=== PATIENT | female | born 1995 | race Caucasian/White ===

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

== ENCOUNTER 2017-05-26 18:00 | Emergency (ER) | payer BC ==
--- NOTE | 2017-05-26 18:43 | EDM.PDOC ---
<Kandice Stevens - Last Filed: 05/26/17 18:52> ED HPI GENERAL MEDICAL PROBLEM - General Chief Complaint: Respiratory Problem Stated Complaint: SINUS PROBLEMS/FEVER Time Seen by Provider: 05/26/17 18:25 Source of Information: Reports: Patient, Family History Limitations: Reports: No Limitations - History of Present Illness INITIAL COMMENTS - FREE TEXT/NARRATIVE: Patient is a 22 YO female who presents with sore throat and fever. 4 days ago, she started feeling ill with nasal congestion and cough. Cough is nonproductive but patient states she feels there is phlegm stuck in her throat. She states her throat is a little sore with some left ear pain. She reports fever of 103 that started last night. She has been taking Tylenol and Motrin for the fever. She took 400 mg Motrin around 1430 today. She has not had much of an appetite but has been trying to drink a lot of water. She denies nausea, vomiting, diarrhea. She denies known sick contracts. She did get her flu shot this year at the end of October. Oral/Mouth Pain Score (Numeric/FACES): 7 - Related Data Allergies Allergy/AdvReac Type Severity Reaction Status Date / Time amoxicillin Allergy Hives Verified 05/26/17 18:04 Penicillins Allergy Hives Verified 05/26/17 18:04 Home Meds: Home Meds Doxycycline [Vibramycin] 100 mg PO BID #20 cap 05/26/17 [Rx] Past Medical History - Past Health History Medical/Surgical History: Denies Medical/Surgical History HEENT History: Reports: Otitis Media Social & Family History - Tobacco Use Smoking Status *Q: Never Smoker Second Hand Smoke Exposure: No - Recreational Drug Use Recreational Drug Use: No - Living Situation & Occupation Living situation: Reports: Single Occupation: Student ED ROS GENERAL - Review of Systems Review Of Systems: See Below Constitutional: Reports: Fever, Chills, Fatigue HEENT: Reports: Ear Pain, Throat Pain Respiratory: Reports: Cough Cardiovascular: Reports: No Symptoms GI/Abdominal: Reports: No Symptoms Skin: Reports: No Symptoms Neurological: Reports: No Symptoms Psychiatric: Reports: No Symptoms ED EXAM, GENERAL - Physical Exam Exam: See Below Exam Limited By: No Limitations General Appearance: Alert, WD/WN, No Apparent Distress Eye Exam: Bilateral Eye: EOMI, PERRL Ears: Normal External Exam, Normal Canal, Normal TMs Throat/Mouth: Normal Lips, Normal Gums, Normal Oropharynx, Normal Voice, Other ( tonsils appear to be mildly enlarged bilaterally. No exudate or errythema. ) Head: Atraumatic, Normocephalic Neck: Normal Inspection, Lymphadenopathy (L) (anterior cervical) Respiratory/Chest: No Respiratory Distress, Lungs Clear, Normal Breath Sounds Cardiovascular: Regular Rate, Rhythm, No Murmur GI/Abdominal: Normal Bowel Sounds, Soft, Non-Tender Neurological: Alert, Oriented, CN II-XII Intact, Normal Cognition, No Motor/ Sensory Deficits Psychiatric: Normal Affect, Normal Mood Skin Exam: Warm, Dry, Intact, Normal Color, No Rash Course - Vital Signs Last Recorded V/S: Last Vital Signs Temp 36.8 C 05/26/17 18:05 Pulse 113 H 05/26/17 18:05 Resp BP 130/67 05/26/17 18:05 Pulse Ox 99 05/26/17 18:05 Orthostatic Blood Pressure [ 115/76 Standing] Orthostatic Blood Pressure [ 111/61 Sitting] Orthostatic Blood Pressure [ 113/71 Supine] - Orders/Labs/Meds Orders: Active Orders 24 hr Category Date Time Status Orthostatic Vital Signs [RC] ASDIRECTED Care 05/26/17 18:36 Active INFLUENZA A+B AG SCREEN [RM] Stat Lab 05/26/17 18:50 Ordered Departure - Departure Disposition: Home, Self-Care 01 Clinical Impression: Sinusitis - Discharge Information Prescriptions: Doxycycline [Vibramycin] 100 mg PO BID #20 cap Instructions: Sinusitis, Adult, [id number] Referrals: Ramya Woodson, BIOMETRICS INSTRUCTOR [Primary Care Provider] - Forms: ED Department Discharge, ED Return to Work/School Form Additional Instructions: Doxycycline 1 Twice a day for 10 days. Take this medication with food. Avoid the sun or if you are in the sun make sure wear sunscreen. [id number] Tylenol or Motrin seen for fevers and body ache relief. Follow up with your primary care provider as planned for recheck of your symptoms. Please return to the ER if your symptoms change or worsen.f. <Keri Suarez - Last Filed: 05/26/17 20:00> ED HPI GENERAL MEDICAL PROBLEM - History of Present Illness INITIAL COMMENTS - FREE TEXT/NARRATIVE: Patient was initially seen by LILIA Chavez. I seen the patient and agree with the history of present illness as documented by Kandice. Addition to me patient reports teeth pain to the bilateral lower jaw which she treats to her wisdom teeth erupting. denies any recent travel. ED ROS GENERAL - Review of Systems HEENT: Reports: Ear Pain (left), Sinus Problem Neurological: Reports: Headache ED EXAM, GENERAL - Physical Exam General Appearance: Mild Distress, Obese Nose: Normal Inspection Head: Sinus Tenderness (Bilateral maxillary) Course - Re-Assessments/Exams Free Text/Narrative Re-Assessment/Exam: 05/26/17 19:29 Patient was initially seen by LILIA Chavez. agree with the history of present illness, review of systems and physical exam as documented by Kandice. I've seen the patient and reviewed her and examined her myself. Plan will be discharged on some doxycycline for a sinus infection. Discharge instructions as documented. Departure - Departure Time of Disposition: 19:39 Condition: Fair
[2017-05-26 19:58] VITALS: BP 106/74
== END 2017-05-26 19:53 | disposition home or self-care (01) ==
LOC: JD.ED 18:00
DX: J32.9 Chronic sinusitis, unspecified (principal); Z88.1 Allergy status to other antibiotic agents; Z88.0 Allergy status to penicillin
CPT/HCPCS: 87804; 99283

== ENCOUNTER 2017-05-27 21:36 | Emergency (ER) | payer BC ==
[2017-05-27 21:48] VITALS: BP 149/86
[2017-05-27] MEDS ORDERED: Dextrose 5%-0.9% NaCl 1,000 ML IV SCH (22:00)
--- NOTE | 2017-05-27 22:00 | EDM.PDOC ---
ED HPI GENERAL MEDICAL PROBLEM - General Chief Complaint: Respiratory Problem Stated Complaint: FEVER/CONGESTION Time Seen by Provider: 05/27/17 21:54 Source of Information: Reports: Patient, Family (mother) History Limitations: Reports: No Limitations - History of Present Illness INITIAL COMMENTS - FREE TEXT/NARRATIVE: 22-year-old female returns to the ED with delirium. Temperature at home was not checked but she was certainly delirious according to mom. She was confused and disoriented mom even had to help her get dressed. He was very warm to palpation. Even now she's 102.6 after receiving Motrin 600 mg mouth 2 hours ago. She has a nonproductive cough for the last 2 days with very high fever loss of appetite body aches and headaches all compatible with influenza. She was seen through the ED last night and influenza screen was negative but it was within the first 24 hours of illness which is often a false negative. She hasn' t eaten all day she's been mostly in bed. She is nauseated at times and does have emesis with coughing so hard. She did have her flu shot last fall. She was started on doxycycline 100 mg twice a day yesterday for suspect upper respiratory tract infection with sinusitis. Slightly that she did not take her meds today out of confusion. Mother still found him on the bedside when she got home from work. Onset: Gradual (Fever started greater than 24 hours ago.) Onset Date: 05/25/17 Duration: Day(s):, Getting Worse, Other (Very confused and disoriented at home tonight improved cognitive function since taking Motrin suggesting delirium was due to high fever.) Location: Reports: Other (Harsh nonproductive cough.) Quality: Reports: Ache Severity: Moderate (Analyzed severe myalgia) Improves with: Reports: Medication (Treatment is help reduce temperature and improved cognitive function.) Context: Denies: Activity, Exercise, Lifting, Sick Contact, Trauma Associated Symptoms: Reports: Cough, Fever/Chills (High fever with severe chills.), Headaches, Loss of Appetite, Malaise (Complete loss of appetite), Nausea/Vomiting, Weakness (Intermittent nausea with vomiting of bilious material. Her generalized weakness). Denies: No Other Symptoms, Confusion, Chest Pain (Nonproductive for the most part), cough w sputum, Diaphoresis, Rash , Seizure, Shortness of Breath, Syncope Treatments SUPERVISOR DISPLAY FABRICATION: Reports: NSAIDS Throat Pain Score (Numeric/FACES): 7 - Related Data Allergies Allergy/AdvReac Type Severity Reaction Status Date / Time amoxicillin Allergy Hives Verified 05/27/17 21:47 Penicillins Allergy Hives Verified 05/27/17 21:47 Home Meds: Home Meds Doxycycline [Vibramycin] 100 mg PO BID #20 cap 05/26/17 [Rx] Chlorpheniramine/HYDROcodone [Tussionex Pennkinetic] 5 ml PO Q12H PRN #60 ml [Rx] Oseltamivir [Tamiflu] 75 mg PO BID #9 cap 05/27/17 [Rx] Past Medical History - Past Health History Medical/Surgical History: Denies Medical/Surgical History HEENT History: Reports: Otitis Media Social & Family History - Tobacco Use Smoking Status *Q: Never Smoker Second Hand Smoke Exposure: No - Caffeine Use Caffeine Use: Reports: None - Recreational Drug Use Recreational Drug Use: No - Living Situation & Occupation Living situation: Reports: Single Occupation: Student ED ROS GENERAL - Review of Systems Review Of Systems: See Below Constitutional: Reports: Fever, Chills, Malaise, Weakness, Fatigue, Decreased Appetite, Weight Loss HEENT: Reports: Ear Pain, Throat Pain (Your pain is constant.) Respiratory: Reports: Cough. Denies: Wheezing, Pleuritic Chest Pain, Sputum, Hemoptysis (Productive cough) Cardiovascular: Reports: Chest Pain, Lightheadedness. Denies: Blood Pressure Problem, Claudication, Dyspnea on Exertion, Edema (When standing.), Orthopnea ( Only from coughing), Palpitations, PND, Syncope Endocrine: Reports: Fatigue GI/Abdominal: Reports: Anorexia : Reports: No Symptoms Musculoskeletal: Reports: Muscle Pain Skin: Reports: No Symptoms (Generalized myalgia) Neurological: Reports: Confusion (Associate with very high fever but not checked at home. Improved cognitive function now and temperature is currently 102.6.), Dizziness, Headache Psychiatric: Reports: Confusion, Other Hematologic/Lymphatic: Reports: No Symptoms (Acute delirium.) Immunologic: Reports: No Symptoms ED EXAM, GENERAL - Physical Exam Exam: See Below Exam Limited By: No Limitations General Appearance: Alert, WD/WN, No Apparent Distress, Other (Is very warm to palpation.) Eye Exam: Bilateral Eye: Normal Inspection Ears: Normal TMs Throat/Mouth: Normal Inspection, Normal Lips, Normal Oropharynx, Other Head: Atraumatic (Tonsils are normal), Normocephalic Neck: Normal Inspection, Supple, Non-Tender, Full Range of Motion, Lymphadenopathy (L) (Minimally enlarged), Lymphadenopathy (R) (Minimal ) Respiratory/Chest: No Respiratory Distress, Lungs Clear, Normal Breath Sounds, No Accessory Muscle Use, Chest Non-Tender, Respiratory Distress. No: Rhonchi, Wheezing, Accessory Muscle Use Cardiovascular: Normal Peripheral Pulses (Resting tachycardia of 116-1 20/m), No Edema, No Gallop, No Murmur, No Rub, Tachycardia Peripheral Pulses: 3+: Posterior Tibial (L), Posterior Tibial (R), Dorsalis Pedis (L), Dorsalis Pedis (R) GI/Abdominal: Normal Bowel Sounds, Soft, Non-Tender, No Organomegaly Back Exam: Normal Inspection, Full Range of Motion, CVA Tenderness (L) (Mild seems to be muscular.), CVA Tenderness (R) Extremities: Normal Inspection, Normal Range of Motion, Non-Tender, No Pedal Edema Neurological: Alert, Oriented, CN II-XII Intact, Normal Cognition Psychiatric: Flat Affect Skin Exam: Warm, Dry, Intact, Normal Color, No Rash Course - Vital Signs Last Recorded V/S: Last Vital Signs Temp 37.1 C 05/27/17 21:44 Pulse 116 H 05/27/17 21:44 Resp 18 05/27/17 21:44 BP 149/86 H 05/27/17 21:44 Pulse Ox 98 05/27/17 21:44 - Orders/Labs/Meds Orders: Active Orders 24 hr Category Date Time Status Chest 1V Frontal [CR] Stat Exams 05/27/17 22:01 Taken INFLUENZA A+B AG SCREEN [RM] Stat Lab 05/27/17 22:24 Ordered Labs: Laboratory Tests 05/27/17 05/27/17 Range/Units 22:12 22:12 WBC 9.18 (3.98-10.04) K/mm3 RBC 4.88 (3.98-5.22) M/mm3 Hgb 12.2 (11.2-15.7) gm/L Hct 39.2 (34.1-44.9) % MCV 80.3 (79.4-94.8) fl MCH 25.0 L (25.6-32.2) pg MCHC 31.1 L (32.2-35.5) g/dl RDW Std Deviation 46.3 (36.4-46.3) fL Plt Count 323 (182-369) K/mm3 MPV 8.9 L (9.4-12.3) fl Neutrophils % (Manual) 68 H (40-60) % Band Neutrophils % 0 (0-10) % Lymphocytes % (Manual) 18 L (20-40) % Atypical Lymphs % 2 % Monocytes % (Manual) 10 (2-10) % Eosinophils % (Manual) 2 (0.7-5.8) % Basophils % (Manual) 0 L (0.1-1.2) Platelet Estimate Adequate Plt Morphology Comment Normal Hypochromasia 1+ slight Poikilocytosis 1+ slight Anisocytosis 1+ slight Microcytosis 1+ slight Macrocytosis 1+ slight Tear Drop Cells 1+ slight RBC Morph Comment Abnormal Sodium 141 (136-145) mEq/L Potassium 3.5 (3.5-5.1) mEq/L Chloride 106 (98-107) mEq/L Carbon Dioxide 25 (21-32) mEq/L Anion Gap 13.5 (5-15) BUN 11 (7-18) mg/dL Creatinine 0.7 (0.55-1.02) mg/dL Est Cr Clr Drug Dosing 120.01 mL/min Estimated GFR (MDRD) > 60 (>60) mL/min BUN/Creatinine Ratio 15.7 (14-18) Glucose 136 H (74-106) mg/dL Calcium 8.8 (8.5-10.1) mg/dL Total Bilirubin 0.3 (0.2-1.0) mg/dL AST 20 (15-37) U/L ALT 21 (14-59) U/L Alkaline Phosphatase 67 (46-116) U/L C-Reactive Protein 2.5 H* (<1.0) mg/dL Total Protein 7.1 (6.4-8.2) g/dl Albumin 3.7 (3.4-5.0) g/dl Globulin 3.4 gm/dL Albumin/Globulin Ratio 1.1 (1-2) Meds: Medications Discontinued Medications Generic Name Dose Route Start Last Admin Trade Name Freq PRN Reason Stop Dose Admin Dextrose/Sodium Chloride 1,000 mls @ 999 mls/hr 05/27/17 22:00 05/27/17 22:20 Dextrose 5%-Normal Saline IV 999 mls/hr ASDIRECTED IRENA Administration Ketorolac Tromethamine 30 mg 05/27/17 22:15 05/27/17 22:23 Toradol IVPUSH 30 mg ONETIME IRENA Administration Ondansetron HCl 4 mg 05/27/17 22:02 05/27/17 22:20 Zofran IVPUSH 05/27/17 22:03 4 mg ONETIME ONE Administration Oseltamivir Phosphate 75 mg 05/27/17 23:07 05/27/17 23:30 Tamiflu PO 05/27/17 23:08 75 mg ONETIME ONE Administration - Radiology Interpretation Free Text/Narrative:: 22-year-old female returns to the ED with acute delirium precipitated by very high fever at home. She's been very ill for the last 24-36 hours with high fever chills. Complete loss of appetite associated nonproductive cough headache and generalized myalgia. These are all symptoms of influenza. She was seen to the ED last night and influenza screen was negative. I suspect this was a false negative. Examination shows no signs of a bacterial infection. Plan 1 view chest x-ray will be done to rule out an occult pneumonia since her temperature was so high. Routine labs will be collected without blood cultures at this time. Lungs are clear to auscultation. Influenza screen to be repeated. IV will be D5 normal saline at open as she has not ate or drank all day and is volume depleted. Will give Toradol 30 mg IV to help with body ache and headache Zofran 4 mg IV for nausea relief. - Re-Assessments/Exams Free Text/Narrative Re-Assessment/Exam: 05/27/17 22:51 portable chest x-ray is within normal limits showing no signs of pneumonia.Labs reveal a normal white count at 9.18. The differential is pending. Hemoglobin is 12.2 with hematocrit of 39.2. Platelets 323,000. Sodium is 141 with potassium of 3.5. Port is 106 with a bicarbonate of 25. Anion gap is 13.5 with a BUN of 11. Creatinine 0.7. Glucose is 136. Calcium is 8.8. Liver function is normal. CRP is elevated at 2.5. Influenza screen is pending. 05/27/17 23:02 influenza screen came back negative once again. Differential on the white count was 68% neutrophils no bands. Therefore she still exhibiting signs symptoms of a viral infection and I'm going to go ahead and treat her clinically with Tamiflu as clinically she has influenza. She will also be given Tussionex cough syrup 5 mils every 12 hours as necessary to help control severe paroxysmal cough. She'll still need to take Motrin 600 mg every 6 hours to break fever at least until the Tamiflu becomes effectual. Departure - Departure Time of Disposition: 23:08 Disposition: Home, Self-Care 01 Condition: Fair Clinical Impression: Viral upper respiratory tract infection with cough - Discharge Information Prescriptions: Chlorpheniramine/HYDROcodone [Tussionex Pennkinetic] 5 ml PO Q12H PRN #60 ml PRN Reason: Cough relief Oseltamivir [Tamiflu] 75 mg PO BID #9 cap Instructions: Upper Respiratory Infection, Adult, [id number] Referrals: Ramya Woodson, STONEMASON HELPER [Primary Care Provider] - Forms: ED Department Discharge Additional Instructions: Evaluation the emergency room tonight in regards to acute delirium that occurred at home likely due to very high fever as your fever came down your cognitive function returned to normal. Medically you have influenza in spite of testing 2 last night and tonight which came back negative. You have all the signs and symptoms of influenza with high fever headache bodyache loss of appetite and paroxysmal nonproductive cough. Chest x-ray is negative for pneumonia and labs revealed more of a viral pattern illness with no signs of bacterial illness. I'm therefore going to suggest continue Motrin use 600 mg every 6 hours to bring fever under control. Tylenol 1 g 3 hours after the Motrin dose if needed for temperature greater than 100.5. Initial dose of Tamiflu which is antiviral medicine for influenza was started in the ED tonight. He will need one tablet twice daily for the next 5 days to clear up influenza infection. This should reduce body aches headaches and help return appetite usually within 36-48 hours. Cough will remain for up to 2 weeks. Cough syrup is to be Tussionex 5 mils every 12 hours as needed for cough relief. Particular use this about an hour before bedtime to help get through the night without coughing. Try drink as much fluids as possible such as Gatorade or Powerade and diet as able. - My Orders Last 24 Hours: My Active Orders 05/27/17 22:01 Chest 1V Frontal [CR] Stat 05/27/17 22:24 INFLUENZA A+B AG SCREEN [RM] Stat - Assessment/Plan Last 24 Hours: My Active Orders 05/27/17 22:01 Chest 1V Frontal [CR] Stat 05/27/17 22:24 INFLUENZA A+B AG SCREEN [RM] Stat
[2017-05-27] MEDS ORDERED: Ondansetron 4 MG/2 ML SDV IVPUSH ONE (22:02)
[2017-05-27] MEDS ORDERED: Ketorolac 30 MG/ML SDV IVPUSH SCH (22:15)
[2017-05-27] MEDS ORDERED: Oseltamivir 75 MG Cap PO ONE (23:07)
--- NOTE | 2017-05-28 06:58 | CR ---
Chest: Portable view of the chest was obtained. Comparison: Prior chest x-ray of 02/10/13. Heart size is prominent but accentuated from portable technique. Lungs are clear with no acute parenchymal change. Bony structures are grossly intact. Impression: 1. Nothing acute is seen on portable chest x-ray. Diagnostic code #1
== END 2017-05-27 23:35 | disposition home or self-care (01) ==
LOC: JD.ED 21:36
DX: J06.9 Acute upper respiratory infection, unspecified (principal); Z88.0 Allergy status to penicillin; Z88.1 Allergy status to other antibiotic agents
CPT/HCPCS: 36415; 71045; 80053; 85025; 86140; 87804; 96361; 96374; 96375; 99284; A9270; J1885; J2405; J7042

== ENCOUNTER 2018-07-09 01:09 | Emergency (ER) | payer BC ==
[2018-07-09 01:20] VITALS: BP 132/92
--- NOTE | 2018-07-09 01:48 | EDM.PDOC ---
ED HPI GENERAL MEDICAL PROBLEM - General Chief Complaint: Upper Extremity Injury/Pain Stated Complaint: SHOULDER PAIN LEFT Time Seen by Provider: 07/09/18 01:20 Source of Information: Reports: Patient, Family (Mother), RN Notes Reviewed History Limitations: Reports: No Limitations - History of Present Illness INITIAL COMMENTS - FREE TEXT/NARRATIVE: The patient states that she has had left shoulder pain on and off for the past 6 months. She recalls no injury. She states that the pain is present even if she is not moving the shoulder, and that the pain involves the entire shoulder - anterior, lateral, posterior, and superior. She states that her pain has been worse for the past week. She states that she has seen a chiropractor for her shoulder a few times, and that her shoulder was manipulated/adjusted, which did not provide any long-term relief. She was seen at the walk-in clinic yesterday, , 07/08/2018. She states that x-rays were done, that she was told were negative. She states that she was not prescribed any pain medication. The patient's PCP is LISA Barnes. The patient has an appointment to see Ms. Beltre on , 07/22/2018. Left Shoulder Pain Score (Numeric/FACES): 9 - Related Data Allergies Allergy/AdvReac Type Severity Reaction Status Date / Time amoxicillin Allergy Hives Verified 05/27/17 21:47 Penicillins Allergy Hives Verified 05/27/17 21:47 Home Meds: Home Meds Doxycycline [Vibramycin] 100 mg PO BID #20 cap 05/26/17 [Rx] Chlorpheniramine/HYDROcodone [Tussionex Pennkinetic] 5 ml PO Q12H PRN #60 ml [Rx] Oseltamivir [Tamiflu] 75 mg PO BID #9 cap 05/27/17 [Rx] Past Medical History Endocrine/Metabolic History: Reports: Obesity/BMI 30+ Social & Family History - Tobacco Use Smoking Status *Q: Never Smoker - Caffeine Use Caffeine Use: Reports: None - Alcohol Use Alcohol Use History: Yes Alcohol Use Frequency: Socially - Recreational Drug Use Recreational Drug Use: No - Living Situation & Occupation Living situation: Reports: Single, with Family 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 ED EXAM, GENERAL - Physical Exam Exam: See Below Exam Limited By: No Limitations General Appearance: Alert, WD/WN, No Apparent Distress Extremities: Other (No visible abnormality to the left shoulder, such as swelling, erythema, ecchymosis, or abrasion. The patient reports tenderness to the anterior, lateral, posterior, and superior shoulder upon palpation. The patient reports pain to the shoulder to all attempts at movement against resistance, including flexion, extension, abduction, and external rotation, however, excluding adduction and internal rotation. The patient has normal AROM. Neurovascular status of the left upper extremity is intact.) Course - Vital Signs Last Recorded V/S: Last Vital Signs Temp 36.4 C 07/09/18 01:18 Pulse 80 07/09/18 01:18 Resp 18 07/09/18 01:18 BP 132/92 H 07/09/18 01:18 Pulse Ox 98 07/09/18 01:18 - Re-Assessments/Exams Free Text/Narrative Re-Assessment/Exam: 07/09/18 01:45 I can only speculate as to the cause of the patient's chronic left shoulder pain , and there are no tests that I can order tonight that will lend insight as to the etiology. Instead, I will refer her to Ortho for further evaluation. Departure - Departure Time of Disposition: 01:46 Disposition: Home, Self-Care 01 Condition: Good Clinical Impression: Chronic left shoulder pain - Discharge Information *PRESCRIPTION DRUG MONITORING PROGRAM REVIEWED*: Not Applicable *COPY OF PRESCRIPTION DRUG MONITORING REPORT IN PATIENT ANIYA: Not Applicable Instructions: Shoulder Pain Referrals: Chris Castillo MD [Physician] - Katherin Beltre PA-C [Ordering Only Provider] - Forms: ED Department Discharge Additional Instructions: You were seen in the emergency room for 6 months of left shoulder pain, on and off, without injury. No acute abnormality was found on examination. The cause of your pain is unclear. We recommend that you follow-up with the Orthopedic Surgeon Dr. Chris Castillo at the next available appointment, for further evaluation and possible treatment. If any other problems, please do not hesitate to return to the ER.
== END 2018-07-09 01:59 | disposition home or self-care (01) ==
LOC: JD.ED 01:09
DX: M25.512 Pain in left shoulder (principal); G89.29 Other chronic pain; Z88.0 Allergy status to penicillin; Z88.1 Allergy status to other antibiotic agents
CPT/HCPCS: 99281; 99283

== ENCOUNTER 2018-11-16 23:57 | Emergency (ER) | payer BC ==
--- NOTE | 2018-11-17 00:02 | EDM.PDOC ---
ED HPI GENERAL MEDICAL PROBLEM - General Chief Complaint: ENT Problem Stated Complaint: ear pain Time Seen by Provider: 11/17/18 00:02 - History of Present Illness INITIAL COMMENTS - FREE TEXT/NARRATIVE: 23-year-old female presents emergency room with several day history of fevers and congestion and ear pain. She's had temps as high as 102 at home. She has significant discomfort in her right ear and a lot of right facial pressure. This is been going on for the last several days. She has quite a bit of postnasal drip and is coughing quite a bit. Bilateral Ear Pain Score (Numeric/FACES): 9 - Related Data Allergies Allergy/AdvReac Type Severity Reaction Status Date / Time amoxicillin Allergy Hives Verified 11/17/18 00:04 Penicillins Allergy Hives Verified 11/17/18 00:04 Home Meds: Home Meds Clindamycin HCl 300 mg PO Q8H #29 capsule 11/17/18 [Rx] metFORMIN [Glucophage XR] 500 mg PO DAILY 11/17/18 [History] Past Medical History - Past Health History Medical/Surgical History: Denies Medical/Surgical History HEENT History: Reports: Otitis Media Endocrine/Metabolic History: Reports: Obesity/BMI 30+ Social & Family History - Caffeine Use Caffeine Use: Reports: None - Living Situation & Occupation Living situation: Reports: Single, with Family 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) ED ROS ENT - Review of Systems Review Of Systems: See Below Constitutional: Reports: Fever, Chills HEENT: Reports: No Symptoms Respiratory: Reports: Cough, Sputum (Seems to be from postnasal drip) Cardiovascular: Reports: No Symptoms GI/Abdominal: Reports: No Symptoms ED EXAM, ENT - Physical Exam Exam: See Below Exam Limited By: No Limitations General Appearance: Alert, No Apparent Distress Eye Exam: Bilateral Eye: Normal Inspection Ears: Other (Left tympanic membrane fairly normal right tympanic membrane is retracted and has exudate behind the tympanic membrane ears and canals otherwise normal) Nose: Other (Minimal nasal congestion she has marked right maxillary sinus tenderness with percussion and she has pain duplicated by looking down in the right maxillary sinus) Mouth/Throat: Normal Inspection, Normal Gums, Normal Lips, Normal Oropharynx, Normal Teeth, Other (Sinus drainage in the posterior pharynx) Head: Atraumatic, Normocephalic Neck: Normal Inspection, Supple, Non-Tender, Full Range of Motion, Lymphadenopathy (L) (Mild), Lymphadenopathy (R) (Mild) Respiratory/Chest: No Respiratory Distress, Lungs Clear, Normal Breath Sounds Cardiovascular: Regular Rate, Rhythm, No Edema Course - Vital Signs Last Recorded V/S: Last Vital Signs Temp 36.4 C 11/17/18 00:01 Pulse 93 11/17/18 00:01 Resp 18 11/17/18 00:01 BP 131/77 11/17/18 00:01 Pulse Ox 99 11/17/18 00:01 - Orders/Labs/Meds Orders: Active Orders 24 hr Category Date Time Status Influenza Vaccine Charge [RC] .DISCHARGE Care 11/17/18 00:09 Active FLU Vacc [id number](6MOS+)/PF [Fluzone Quad Med 11/17/18 00:15 Once Syringe] 60 mcg IM .ONCE ONE Pharmacy to Dose - InFluenza V [Pharmacy to Dose - Med 11/17/18 00:09 Once InFluenza Vaccine] 1 each IM ONETIME ONE Medication Orders Influenza Virus Vaccine (Pharmacy To Dose - Influenza Vaccine) 1 each IM ONETIME ONE Stop: 11/17/18 00:10 Influenza Virus Vaccine (Fluzone Quad Syringe) 60 mcg IM .ONCE ONE Stop: 11/17/18 00:16 Meds: Medications Generic Name Dose Route Start Last Admin Trade Name Freq PRN Reason Stop Dose Admin Influenza Virus Vaccine 1 each 11/17/18 00:09 Pharmacy To Dose - Influenza Vaccine IM 11/17/18 00:10 ONETIME ONE Influenza Virus Vaccine 60 mcg 11/17/18 00:15 Fluzone Quad Syringe IM 11/17/18 00:16 .ONCE ONE Departure - Departure Time of Disposition: 00:16 Disposition: Home, Self-Care 01 Clinical Impression: Right acute suppurative otitis media, Right maxillary sinusitis - Discharge Information Prescriptions: Clindamycin HCl 300 mg PO Q8H #29 capsule Referrals: Katherin Beltre PA-C [Primary Care Provider] - Forms: ED Department Discharge Additional Instructions: Return to emergency room if any questions problems worsening symptoms. Take the antibiotics as directed. Your first dose was given here in the emergency room. Consider sinus irrigation with the Eric [employer] sinus coating technician ibuprofen as needed for discomfort Follow-up in the clinic early next week if needed - My Orders Last 24 Hours: My Active Orders 11/17/18 00:09 Influenza Vaccine Charge [RC] .DISCHARGE Pharmacy to Dose - InFluenza V [Pharmacy to Dose - InFluenza Vaccine] 1 each IM ONETIME ONE 11/17/18 00:15 FLU Vacc [id number](6MOS+)/PF [Fluzone Quad Syringe] 60 mcg IM .ONCE ONE - Assessment/Plan Last 24 Hours: My Active Orders 11/17/18 00:09 Influenza Vaccine Charge [RC] .DISCHARGE Pharmacy to Dose - InFluenza V [Pharmacy to Dose - InFluenza Vaccine] 1 each IM ONETIME ONE 11/17/18 00:15 FLU Vacc [id number](6MOS+)/PF [Fluzone Quad Syringe] 60 mcg IM .ONCE ONE
[2018-11-17 00:04] VITALS: BP 131/77; PULSE 93
[2018-11-17] MEDS ORDERED: FLU Vacc QS2019-20(6MOS+)/PF 60 MCG/0.5 ML SYRINGE IM ONE (00:15)
[2018-11-17] MEDS ORDERED: Clindamycin HCl 150 MG Cap PO ONE (00:19)
== END 2018-11-17 00:35 | disposition home or self-care (01) ==
LOC: JD.ED 23:57
DX: H66.001 Acute suppurative otitis media without spontaneous rupture of ear drum, right ear (principal); J32.0 Chronic maxillary sinusitis; E66.9 Obesity, unspecified; Z68.36 Body mass index [BMI] 36.0-36.9, adult; Z88.0 Allergy status to penicillin
CPT/HCPCS: 90471; 90686; 99282; A9270; 99283; G0008

== ENCOUNTER 2019-12-16 23:33 | Emergency (ER) | payer BC, OTHER ==
[2019-12-16 23:45] VITALS: BP 143/88; PULSE 120
[2019-12-16] MEDS ORDERED: FLU VACC QS2020-21(6MOS UP)/PF 60 MCG/0.5 ML SYRINGE IM ONE (23:45)
--- NOTE | 2019-12-17 00:15 | EDM.PDOC ---
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 Lunsford is a very pleasant 24-year-old woman, , who now presents to the ED with a complaint of abnormal uterine bleeding. She states that her usual menstrual period started on 11/12/2019, but after it finished, she has had painless spotting ever since. The vaginal bleeding then became more severe this past 12/13/2019. At about that time, she saw her PCP. The patient states that no tests were done, but that she was prescribed control pills, which she is supposed to start this coming 12/18/2019. She presented to the ED, however, because she became lightheaded when upright today. She states that she feels dehydrated, therefore she has been drinking Pedialyte. No prior similar experience. Here in the ED, the patient's initial BP is found to be mildly elevated 143/88, with a tachycardia of 120 bpm. She is afebrile, saturating 99% on room air. Prior to 1 month ago, the patient denies having a recent fever, chills, sore throat, ear pain, nasal or sinus congestion, cough, dyspnea, chest pain, palpitations, nausea, vomiting, constipation, diarrhea, abdominal pain, urinary symptoms, recent weight gain or weight loss, recent bloody bowel movements or black bowel movements, recent joint aches, headaches, or rashes. The patient's PCP is Makenzie Arizmendi NP. She has not received an influenza vaccine this season, but agreed to receive one here today. - Related Data Allergies Allergy/AdvReac Type Severity Reaction Status Date / Time amoxicillin Allergy Hives Verified 12/16/19 23:45 Penicillins Allergy Hives Verified 12/16/19 23:45 Home Meds: Home Meds . [No Known Home Meds] 12/16/19 [History] Past Medical History Endocrine/Metabolic History: Reports: Obesity/BMI 30+, Other (See Below) (Pred iabetes) Social & Family History - Family History Family Medical History: Noncontributory - Tobacco Use Tobacco Use Status *Q: Never Tobacco User Second Hand Smoke Exposure: No - Caffeine Use Caffeine Use: Reports: Coffee - Alcohol Use Alcohol Use History: Yes Alcohol Use Frequency: Socially - Recreational Drug Use Recreational Drug Use: No - Living Situation & Occupation Living situation: Reports: Single, with Family (Parents) Occupation: Employed ([employer]) ED ROS GENERAL - Review of Systems Review Of Systems: Comprehensive ROS is negative, except as noted in HPI. ED EXAM, RENAL/ - Physical Exam Exam: See Below Exam Limited By: No Limitations General Appearance: Alert, WD/WN, No Apparent Distress Eye Exam: Bilateral Eye: EOMI, Normal Inspection Ears: Normal External Exam, Hearing Grossly Normal Nose: Normal Inspection Throat/Mouth: Normal Inspection, Normal Lips, Normal Voice, No Airway Compromise Head: Atraumatic, Normocephalic Neck: Normal Inspection, Full Range of Motion Respiratory/Chest: No Respiratory Distress, Lungs Clear, Normal Breath Sounds, No Accessory Muscle Use Cardiovascular: Normal Peripheral Pulses, Regular Rate, Rhythm, No Edema, No Gallop, No JVD, No Murmur, No Rub GI/Abdominal: Normal Bowel Sounds, Soft, Non-Tender, No Organomegaly, No Distention, No Abnormal Bruit, No Mass (Female) Exam: Normal External Exam, Other (Modest amount of brownish blood within the vagina. No active bleeding seen from a nulliparous cervix. No vaginal lesions seen.) Back Exam: Normal Inspection, Full Range of Motion. No: CVA Tenderness (L), CVA Tenderness (R) Extremities: Normal Inspection, Normal Range of Motion, No Pedal Edema, Normal Capillary Refill Neurological: Alert, Oriented, Normal Cognition, No Motor/Sensory Deficits Psychiatric: Normal Affect Skin Exam: Warm, Dry, Intact, Normal Color, No Rash Course - Vital Signs Last Recorded V/S: Last Vital Signs Temp 37.1 C 12/16/19 23:41 Pulse 120 H 12/16/19 23:41 Resp 17 12/16/19 23:41 BP 143/88 H 12/16/19 23:41 Pulse Ox 99 12/16/19 23:41 Orthostatic Blood Pressure [ 120/78 Standing] Orthostatic Blood Pressure [ 113/81 Supine] - Orders/Labs/Meds Orders: Active Orders 24 hr Category Date Time Status Influenza Vaccine Charge [RC] .DISCHARGE Care 12/16/19 23:49 Active Orthostatic Vital Signs [RC] STAT Care 12/17/19 00:05 Active CBC WITH MANUAL DIFF [HEME] Stat Lab 12/17/19 00:54 Received Labs: Laboratory Tests 12/17/19 12/17/19 Range/Units 00:54 00:54 WBC 8.35 (3.98-10.04) K/mm3 RBC 5.06 (3.98-5.22) M/mm3 Hgb 12.4 (11.2-15.7) gm/dl Hct 39.6 (34.1-44.9) % MCV 78.3 L (79.4-94.8) fl MCH 24.5 L (25.6-32.2) pg MCHC 31.3 L (32.2-35.5) g/dl RDW Std Deviation 47.7 H (36.4-46.3) fL Plt Count 305 (182-369) K/mm3 MPV 8.8 L (9.4-12.3) fl HCG, Quant < 1.0 mIU/mL Meds: Medications Discontinued Medications Generic Name Dose Route Start Last Admin Trade Name Freq PRN Reason Stop Dose Admin Influenza Virus Vaccine 1 each 12/16/19 23:49 Pharmacy To Dose - Influenza Vaccine IM 12/16/19 23:50 ONETIME ONE Influenza Virus Vaccine 60 mcg 12/16/19 23:45 12/17/19 00:16 Fluzone Quad [id number] Syringe IM 12/16/19 23:46 60 mcg .ONCE ONE Administration - Re-Assessments/Exams Free Text/Narrative Re-Assessment/Exam: 12/17/19 00:10 As above, the patient has been spotting for about 1 month, then developed heavier vaginal bleeding about 3 days ago, about the same time she saw her PCP. She was prescribed control pills that she is to start this coming 12/18/2019. She developed lightheadedness when upright, today. She is tachycardic, otherwise, her physical exam is grossly unremarkable. I have ordered a work-up that includes orthostatics, CBC, and a quantitative hCG. The patient will be taken to our gynecologic examination room so that I can inspect her cervix. 12/17/19 00:22 The patient is not orthostatic. 12/17/19 01:01 On pelvic examination, there was a modest amount of brownish blood within the vagina. No active bleeding from a nulliparous cervix. No vaginal lesions seen. No suggestion of a vaginal infection. 12/17/19 01:36 The patient's CBC is unremarkable. Her quantitative hCG is undetectably low. 12/17/19 01:38 Test results discussed with the patient. As above, while the patient may feel lightheaded when she stands up, she is not orthostatic, nor is she anemic. The underlying cause of her abnormal uterine bleeding is not immediately known. I will refer her to Dr. Cm for follow-up for further evaluation. In the meantime, I see no reason why she cannot start the control pills on Thursday as prescribed by her PCP. The patient will be given an influenza vaccine prior to discharge. Departure - Departure Time of Disposition: 01:39 Disposition: Home, Self-Care 01 Condition: Good Clinical Impression: Abnormal uterine bleeding - Discharge Information *PRESCRIPTION DRUG MONITORING PROGRAM REVIEWED*: Not Applicable *COPY OF PRESCRIPTION DRUG MONITORING REPORT IN PATIENT ANIYA: Not Applicable Referrals: Makenzie Arizmendi NP [Primary Care Provider] - Maeve Cm MD [Physician] - Forms: ED Department Discharge Additional Instructions: You were seen in the emergency room for approximately 1 month of vaginal spotting, followed by 3 days of heavier vaginal bleeding, a condition known as abnormal uterine bleeding. Work-up in the ER included positional blood pressure checks, a CBC, and a quantitative hCG. Your positional blood pressure checks were normal. Your blood pressure did not drop inordinately between lying and standing. You are not dehydrated. You are not anemic, and you are not . The underlying cause of your abnormal uterine bleeding is not known. Further evaluation is needed. We recommend that you begin taking the control pills this coming 12/18/2019, as prescribed by your PCP. We recommend that you follow-up with the Cut [employer] Dr. Maeve Cm, at the next available appointment. If any other problem, please do not hesitate to return to the ER. You were given an influenza vaccine during your ER visit. Sepsis Event Note (ED) - Evaluation Sepsis Screening Result: No Definite Risk - Focused Exam Vital Signs: Vital Signs Temp Pulse Resp BP Pulse Ox 12/16/19 23:41 37.1 C 120 H 17 143/88 H 99 - My Orders Last 24 Hours: My Active Orders 12/16/19 23:49 Influenza Vaccine Charge [RC] .DISCHARGE 12/17/19 00:05 Orthostatic Vital Signs [RC] STAT 12/17/19 00:54 CBC WITH MANUAL DIFF [HEME] Stat - Assessment/Plan Last 24 Hours: My Active Orders 12/16/19 23:49 Influenza Vaccine Charge [RC] .DISCHARGE 12/17/19 00:05 Orthostatic Vital Signs [RC] STAT 12/17/19 00:54 CBC WITH MANUAL DIFF [HEME] Stat
== END 2019-12-17 01:50 | disposition home or self-care (01) ==
LOC: JD.ED 23:33
DX: N93.9 Abnormal uterine and vaginal bleeding, unspecified (principal); Z88.1 Allergy status to other antibiotic agents; Z88.0 Allergy status to penicillin; Z23 Encounter for immunization
CPT/HCPCS: 36415; 84702; 85007; 85027; 90686; 99282; 99284-25; G0008

== ENCOUNTER 2021-02-24 19:24 | Emergency (ER) | payer SELFPAY ==
[2021-02-24 19:39] VITALS: BP 145/88; PULSE 97
[2021-02-24 20:21] LABS: CORONAVIRUS COVID-19 NAA NEGATIVE (NEGATIVE)
== END 2021-02-24 22:00 | disposition home or self-care (01) ==
LOC: JD.ED 19:24
DX: J06.9 Acute upper respiratory infection, unspecified (principal); E66.9 Obesity, unspecified; Z88.0 Allergy status to penicillin; Z68.41 Body mass index [BMI] 40.0-44.9, adult; Z20.822 Contact with and (suspected) exposure to COVID-19
CPT/HCPCS: 0240U; 71046; 99283

== ENCOUNTER 2021-05-06 21:56 | Emergency (ER) | payer OTHER ==
[2021-05-06 22:20] VITALS: BP 141/94; PULSE 104
[2021-05-06] MEDS ORDERED: Lidocaine 1% 10 ML MDV INJECT ONE (23:48)
[2021-05-06] MEDS ORDERED: Ketorolac 15 MG/ML SDV IM ONE (23:48)
== END 2021-05-07 00:51 | disposition home or self-care (01) ==
LOC: JD.ED 21:56
DX: S61.412A Laceration without foreign body of left hand, initial encounter (principal); E66.9 Obesity, unspecified; Z68.41 Body mass index [BMI] 40.0-44.9, adult; Z86.16 Personal history of COVID-19; Z88.0 Allergy status to penicillin; W26.0XXA Contact with knife, initial encounter
CPT/HCPCS: 12001; 96372; 99282; J1885

== ENCOUNTER 2024-02-10 02:28 | Emergency (ER) | payer BC, OTHER ==
[2024-02-10 02:51] VITALS: BP 135/91; PULSE 102
[2024-02-10] MEDS: Fluorescein 1 MG Ophth Strip EYELF ONE (03:26)
[2024-02-10] MEDS: Acetaminophen 325 MG Tab PO ONE (03:27)
== END 2024-02-10 05:04 | disposition home or self-care (01) ==
LOC: JD.ED 02:28
DX: S00.83XA Contusion of other part of head, initial encounter (principal); S10.91XA Abrasion of unspecified part of neck, initial encounter; E66.9 Obesity, unspecified; Z86.16 Personal history of COVID-19; Z88.0 Allergy status to penicillin; Z79.899 Other long term (current) drug therapy; Y04.0XXA Assault by unarmed brawl or fight, initial encounter
CPT/HCPCS: 70450; 72125; 99284; A9270